=== PATIENT | female | born 1985 | race Caucasian/White ===

== ENCOUNTER → 2020-12-29 | Day surgery (SDC) | payer OTHER ==
[~2020-12-29] MED LIST: IBUPROFEN800 M1 PO; ZOLOFT50 MG PO
[2020-12-29 07:38] LABS: HCG (URINE) SCREEN NEGATIVE (NEGATIVE)
== END | disposition home or self-care (01) ==
LOC: FAS 06:52
PROVIDERS: Obstetrics & Gynecology
DX: N93.9 Abnormal uterine and vaginal bleeding, unspecified (principal); D64.9 Anemia, unspecified; K80.20 Calculus of gallbladder without cholecystitis without obstruction; Z20.822 Contact with and (suspected) exposure to COVID-19; Z87.891 Personal history of nicotine dependence; Z87.19 Personal history of other diseases of the digestive system; Z87.442 Personal history of urinary calculi; Z90.49 Acquired absence of other specified parts of digestive tract; Z82.49 Family history of ischemic heart disease and other diseases of the circulatory system
CPT/HCPCS: 84703; 93005; J1100; J1885; J2250; J2405; J2704; J3010; J7120; J7298